=== PATIENT | female | born 2000 ===

== ENCOUNTER 2021-09-23 23:50 | Emergency (ER) | payer BC ==
[2021-09-24 00:56] LABS: ANION GAP 14.7 mEq/L (7-13); CHLORIDE,CL 102 mmol/L (98-107); SODIUM,NA 139 mmol/L (136-145)
[2021-09-24] MEDS ORDERED: Iopamidol 755 Mg/ML 100 ML Bottle IVPUSH ONE (01:18)
== END 2021-09-24 04:22 | disposition home or self-care (01) ==
LOC: DL.ED 23:50
DX: S29.011A Strain of muscle and tendon of front wall of thorax, initial encounter (principal)
CPT/HCPCS: 36415; 71260; 80053; 81001; 81025; 82150; 83605; 83690; 84484; 85025; 85379; 87086; 93005; 99285; Q9967

== ENCOUNTER 2023-06-27 20:40 | Emergency (ER) | payer OTHER, BC ==
[2023-06-27] MEDS ORDERED: Sodium Chloride 0.9% 10 ML Syringe FLUSH PRN (20:52)
[2023-06-27] MEDS ORDERED: Sodium Chloride 0.9% 1,000 ML IV ONE (20:52)
[2023-06-27 21:21] LABS: ACETAMINOPHEN 0 ug/mL (10-30 (Therapeutic)); ETHANOL BLOOD MEDICAL < 3 mg/dL (0)
[2023-06-27] MEDS ORDERED: Take Home: Ondansetron 4 MG Tab.DIS, 5 Tab Pack PO ONE (22:57)
== END 2023-06-28 00:05 | disposition home or self-care (01) ==
LOC: DL.ED 20:40
DX: F12.129 Cannabis abuse with intoxication, unspecified (principal)
CPT/HCPCS: 36415; 80143; 80179; 80307; 93005; 93010; 96360; 99284; 99284-25; J3490; J7030; Q0162